=== PATIENT | female | born 2005 | race Caucasian/White ===

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

== ENCOUNTER 2023-03-20 13:34 | Emergency (ER) | payer MEDICAID, SELFPAY ==
[2023-03-20 13:35] VITALS: BP 145/107; PULSE 98; RESP 16; TEMP 36.3; O2SAT 100; BMI 19.0
--- NOTE | 2023-03-20 14:10 | EX.ED.UPPERE ---
HPI <DUNG Gaviria - Last Filed: 03/20/23 14:18> History of Present Illness Chief Complaint: Upper Extremity Injury Narrative Narrative: Patient is a 17-year-old female with no significant medical history. Presenting to the emergency department with right wrist pain. Patient dates for the last week, patient is been having more swelling, pain to the right wrist on her ulnar aspect. [facility], got x-rays 3 views of the right wrist, showed a fracture of the distal ulna, and sent her to [facility] orthopedics. Per the patient, she got called and said that she cannot go there for a cast because her insurance is not accepted there. Patient is here now for a splint. Patient denies any other injury. Patient that she probably injured it while she was army crawling under her bed 1 week ago. [facility] <DUNG Gaviria - Last Filed: 03/20/23 14:18> [facility] Medical History (Updated 03/20/23 @ 14:18 by DUNG Gaviria) Acute conjunctivitis, left eye Right distal ulnar fracture Home Medications NK 03/20/23 [History Last Taken Unknown] Allergy/AdvReac Type Severity Reaction Status Date / Time No Known Allergies Allergy Verified 03/20/23 13:37 Social History adopted: No household members: significant other and other details: mother number of children: 0 current occupational status: employed current occupation: [employer] current occupational exposures/hazards: No pets and animals: Yes pets and animals: cat(s), dog(s) and other details: Tom history of recent travel: No sexually active: Yes Smoking Status: Never smoker Tobacco: How many years used: 3 alcohol intake: never substance use type: does not use caffeine: Yes what type of physical activity do you participate in: none seatbelt use: always do you feel safe at home: Yes additional 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: 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 ROS <DUNG Gaviria - Last Filed: 03/20/23 14:18> ROS ED ROS Narrative Constitutional: Negative for fever, chills, weight loss, weakness Eyes: Negative for vision loss, vision change, double vision ENT: Negative for any sore throat, ear pain, congestion Cardiovascular: Negative for any chest pain, tightness, palpitations Respiratory: Negative for any cough, sputum production, hemoptysis, dyspnea, dyspnea on exertion, orthopnea Gastrointestinal: Negative for any abdominal pain, nausea, vomiting, diarrhea, constipation, blood in stool, blood in vomit : Negative for any urinary frequency, dysuria, retention, blood in urine Muscle skeletal: Negative for any myalgias, arthralgias, neck pain, back pain. Positive for right wrist pain Neurological: Negative for any headache, syncope, paresthesias, dizziness Skin: Negative for any rashes, lumps, itching, abrasions, lacerations Psychiatric: Negative for any depression, anxiety, stress, suicidal ideation, homicidal ideation Hematologic: Negative for any easy bruising, excessive bruising, easy bleeding Allergies: Negative for any eczema, hives, rash EXAM <DUNG Gaviria - Last Filed: 03/20/23 14:18> Physical Exam Narrative Exam Narrative: Vital signs reviewed. HEET: Head normocephalic atraumatic, TMs clear bilaterally. Posterior pharynx is clear, moist mucous membranes. Nares clear bilaterally. Neck: Supple with no lymphadenopathy or tenderness. No signs of meningismus. Cardiac: Regular rate and rhythm no murmurs gallops or rubs, equal peripheral pulses bilaterally. Respiratory: Lungs clear to auscultation bilaterally. No chest tenderness. Abdomen: Soft, nontender, nondistended. No abdominal bruit or pulsatile masses. No hepatosplenomegaly Extremities: Patient does have edema to the distal ulna, patient is have significant pain with any movement. +2 radial pulse. Neuro: Cranial nerves II through XII intact, no focal neurological deficits. Skin: Clean dry and intact with no rash, purpura, petechiae, vesicles or pustules. Backs/flank: No CVA tenderness, no midline spinal tenderness, no deformity. Psych: Normal mood and affect. No SI, HI or acute psychosis. Const Vital Signs: 03/20/23 13:35 Temperature 97.4 F L Temperature Source Temporal Pulse Rate 98 Respiratory Rate 16 Blood Pressure 145/107 H Blood Pressure Mean 119 Pulse Ox 100 Oxygen Delivery Method Room Air MDM <DUNG Gaviria - Last Filed: 03/20/23 14:18> [facility] Treatment and Re-Evaluation Narrative: Patient appears to be in no obvious distress, vital signs are stable. Presenting to the emergency department with ongoing right wrist pain after an injury that occurred 1 week ago. Patient does have a known fracture, I was able to look up the x-rays, as shows the patient has a nondisplaced transverse fracture to the distal metaphysis of the ulna. Patient will be placed in a short arm ulnar gutter. I did offer the patient a prescription for pain medicine such as [place] or Percocet, she refused. Patient states she will continue to take ibuprofen and Tylenol. I will give the patient multiple orthopedics to follow-up with. She is aware this is a temporary splint. She instructed return for any worsening symptoms. All questions answered, patient stable for discharge. <Dr. Dov Alexis MD - Last Filed: 03/20/23 16:06> [facility] Narrative Medical decision making narrative: I have personally performed a face to face assessment of the patient and have reviewed the NILE Note. I performed a substantive portion of the visit including all aspects of the following. My campbell findings include: History is minor injury, patient does not know which one it was that resulted in this fracture, but it probably occurred a week ago. Had outpatient x-rays and diagnosed with a fracture at the distal right ulna. [id number]. No neurologic symptoms or loss of function but difficulty moving her wrist with supination and pronation due to pain. Exam is no deformities. Neurovascular intact distally right upper extremity, radian, median, ulnar nerves intact including PIN and AIN branches. Tender to distal ulna, limited pronation and supination due to pain. Medical Decison Making reviewed outpatient x-rays that were obtained outside this facility. 3 views of the right wrist do appear to show a nondisplaced distal ulna shaft/metaphysis fracture. Placed in ulnar gutter splint by CVIR TECH which I supervised, neurovascular intact distally after placement and will follow-up with orthopedics, we gave her several referrals since apparently the one would not see her due to insurance issues. Other additions or changes: [None] Discharge Plan Triage Chief Complaint: Upper Extremity Injury ED Midlevel Provider: Stevenson Mathews ED Provider: Dov Alexis Dx/Rx/DC Orders Clinical Impression: Distal end of ulna fracture, closed Instructions: Fx Forearm, ED Fracture, Wrist, General Prescriptions: No Action NK Primary Care Provider: Willam Padgett Referrals: Willam Padgett MD [Primary Care Provider] - Kelby Caraballo DO [Med Staff - Active Staff] - Nathen Aburto DO [Med Staff - Active Staff] - 3-5 Days Activity Restrictions/Additional Instructions: Do not get this wet. You may elevate it, ensure that this is iced however Dry. You need to follow-up with orthopedics. Disposition Disposition: Home, Self Care Discharge Date/Time: 03/20/23 14:30
--- OUTSIDE RECORDS SUMMARY | 2023-03-20 16:40 | XMS RPT_ITS | CCD ---
Author Name Unknown Address [address] [facility] [address] [place] [id number] Organization [facility] Care Team Providers Care Tag Press Operator Name Role Phone KENNETH VEGA Attending Unavailable WILLAM ALONSO Primary Care Unavailable Willam Alonso MD Primary Care Provider [phone] Willam Alonso MD Primary Care Provider [phone] MERY EASON Attending Unavailable WILLAM ALONSO Primary Care Unavailable Medications Current Medications Medication Drug Class(es) Dates Sig (Normalized) Sig (Original) propranolol hydrochloride 10 mg oral tablet (2 sources) beta-Adrenergic Chelsi Start: 01-11-2021 End: 11-29-2021 take 1 tablet by mouth twice daily propranolol (INDERAL) 10 mg tablet TAKE 1 TABLET BY MOUTH TWICE A DAY 60 tablet 0 01/11/2021 11/29/2021 Discontinued Completed/Discontinued Medications Medication Drug Class(es) Dates Sig (Normalized) Sig (Original) ciprofloxacin 3 mg/ml ophthalmic solution (3 sources) Quinolone Antimicrobial Start: 11-28-2021 take 2 drop(s) into the eye(s) twice daily ciprofloxacin HCl (CILOXAN) 0.3 % ophthalmic solution Indications: Acute bacterial conjunctivitis of left eye Instill 2 drops twice daily into left eye x 7 days 10 mL 0 11/28/2021 Active Problems Problem Classification Problem Date Documented Da te Episodic/Chronic Inflammation; infection of eye (except that caused by tuberculosis or sexually transmitteddisease) (1 source) Acute infectious conjunctivitis; Translations: [Unspecified acute conjunctivitis, left eye] Episodic Viral infection (1 source) Acute viral disease; Translations: [Viral infection, unspecified] Episodic Results Test Name Value Interpretation Reference Range Facil ity Vital Signs Date Time Vital Sign Value Performing Clinician Faci lity 11-28-2021 09:24-0400 Body temperature 98.6 [degF] Mery Eason PA-C Work Phone: [facility] 11-28-2021 09:24-0400 Body weight 63.96 kg Mery Eason PA-C Work Phone: [facility] 11-28-2021 09:24-0400 Diastolic blood pressure 70 mm[Hg] Mery Eason PA-C Work Phone: [facility] 11-28-2021 09:24-0400 Heart rate 96 /min Mery Eason PA-C Work Phone: [facility] 11-28-2021 09:24-0400 Respiratory rate 20 /min Mery Eason PA-C Work Phone: [facility] 11-28-2021 09:24-0400 Systolic blood pressure 100 mm[Hg] Mery Eason PA-C Work Phone: [facility] Encounters Encounter Date Encounter Type Care Provider Facility Start: 10-30-2022 Telephone encounter Ivy López MD Work Phone: OB/Gynecology Start: 11-29-[address] out PA-C Work Phone: [facility] [place] Procedures Date Procedure Procedure Detail Performing Clinician Start: 06-22-2020 Adult depression screening assessment Mery Eason PA-C Work Phone: Plan of Treatment Date Care Activity Detail Author Start: 04-29-2026 Urine microalbumin profile [facility] Start: 10-11-2022 Influenza vaccination Influenza Vaccine (#1) [facility] Start: 02-10-2022 Depression Assessment Depression Assessment [facility] Start: 12-01-2021 Chlamydia Screening (18-24) Chlamydia Screening (18-24) [facility] Start: 12-01-2021 GC (Gonorrhea) Screening (18-24) GC (Gonorrhea) Screening (18-24) [facility] Start: 12-01-2021 Hepatitis C Screening Hepatitis C Screening [facility] Start: 12-01-2021 HIV Screening HIV Screening [facility] Start: 10-11-2021 Influenza vaccination INFLUENZA (#1) [facility] Start: 06-22-2021 Adult depression screening assessment DEPRESSION SCREENING [facility] Start: 02-12-2021 COVID-19 VACCINE (3 - Booster for Pfizer series) COVID-19 VACCINE (3 - Booster for Pfizer series) [facility] Start: 02-12-2021 Covid-19 Vaccine (3 - Pfizer series) Covid-19 Vaccine (3 - Pfizer series) [facility] Start: 07-20-2020 Meningococcal B Vaccine: Consider Based On Risk (2 of 2 - Risk Bexsero 2-dose series) Meningococcal B Vaccine: Consider Based On Risk (2 of 2 - Risk Bexsero 2-dose series) [facility] Start: 07-20-2020 MENINGOCOCCAL B: Consider based on risk (2 of 2 - Risk Bexsero 2-dose series) MENINGOCOCCAL B: Consider based on risk (2 of 2 - Risk Bexsero 2-dose series) [facility] Start: 12-01-2018 CHLAMYDIA SCREENING (<18) CHLAMYDIA SCREENING (<18) [facility] Start: 12-01-2018 GC (GONORRHEA) SCREENING (<18) GC (GONORRHEA) SCREENING (<18) [facility] Start: 12-01-2017 PEDS TO ADULT TRANSITION ANNUAL ASSESSMENT PEDS TO ADULT TRANSITION ANNUAL ASSESSMENT [facility] Start: 2015 PEDS TO ADULT TRANSITION INITIAL DISCUSSION PEDS TO ADULT TRANSITION INITIAL DISCUSSION [facility] COVID, FLU A/B + RSV , ROUTINE COVID, FLU A/B + RSV, ROUTINE Microbiology Routine Acute viral syndrome 11/28/2021 10:23 AM [facility] Work Phone: ROUTINE FLU A/B + RSV ROUTINE FL U A/B + RSV Lab Routine Acute viral syndrome 11/28/2021 10:23 AM T [facility] Work Phone: SARS-CoV-2 (COVID-19 ) RNA [Presence] in Respiratory specimen by JAMES with probe detection 2019 CORONAVIRUS Microbiology Routine Acute viral syndrome 11/28/2021 10:23 AM [facility] Work Phone: [facility] Immunizations Immunization Date Immunization Notes Care Provider Zoraida austin 12-18-2020 COVID-19 original vaccine, age 12+ yr, monovalent ([employer].NTActivaero - PURPLE TOP) Mery Eason PA-C Work Phone: [facility] 11-13-2020 COVID-19 original vaccine, age 12+ yr, monovalent (PFIZER-BIONTECH - PURPLE TOP) Mery Eason PA-C Work Phone: [facility] 11-13-2020 influenza, injectabl e, quadrivalent, contains preservative Mery Eason PA-C Work Phone: [facility] 11-13-2020 influenza virus vacc ine, unspecified formulation Ivy López MD Work Phone: [facility] 06-22-2020 meningococcal B vacc ine, recombinant, OMV, adjuvanted Mery Eason PA-C Work Phone: [facility] 05-25-2020 meningococcal polysaccharide (groups A, C, Y and W-135) diphtheria toxoid conjugate vaccine (MCV4P) Emry Eason PA-C Work Phone: [facility] 08-26-2017 Human Papillomavirus 9-valent vaccine Mery Eason PA-C Work Phone: [facility] 04-29-2016 Human Papillomavirus 9-valent vaccine Mery Eason PA-C Work Phone: [facility] 04-29-2016 influenza, injectabl e, quadrivalent, contains preservative Mery Eason PA-C Work Phone: [facility] 04-29-2016 meningococcal polysaccharide (groups A, C, Y and W-135) diphtheria toxoid conjugate vaccine (MCV4P) Mery Eason PA-C Work Phone: [facility] 04-29-2016 tetanus toxoid, redu fitz diphtheria toxoid, and acellular pertussis vaccine, adsorbed Mery Eason PA-C Work Phone: [facility] 11-19-2013 influenza, injectabl e, quadrivalent, preservative free Mery Eason PA-C Work Phone: [facility] Work Phone: 02-26-2013 influenza virus vacc ine, unspecified formulation Mery Eason PA-C Work Phone: [facility] 11-21-2011 influenza virus vacc ine, live, attenuated, for intranasal use Emry Eason PA-C Work Phone: [facility] Work Phone: 12-01-2008 influenza virus vacc ine, live, attenuated, for intranasal use Mery Eason PA-C Work Phone: [facility] 10-26-2008 diphtheria, tetanus toxoids and acellular pertussis vaccine Mery Eason PA-C Work Phone: [facility] Work Phone: 10-26-2008 measles, mumps and rubella virus vaccine Mery Eason PA-C Work Phone: [facility] Work Phone: 10-26-2008 poliovirus vaccine, inactivated Mery Eason PA-C Work Phone: [facility] Work Phone: 10-26-2008 varicella virus vaccine Ashish ten Eason PA-C Work Phone: [facility] Work Phone: 01-04-2006 influenza virus vacc ine, unspecified formulation Mery Eason PA-C Work Phone: [facility] Work Phone: 03-06-2005 diphtheria, tetanus toxoids and acellular pertussis vaccine Mrey Eason PA-C Work Phone: [facility] Work Phone: 03-06-2005 haemophilus influenz ae type b vaccine, HbOC conjugate Mery Eason PA-C Work Phone: [facility] Work Phone: 01-14-2005 influenza virus vacc ine, unspecified formulation Mery Eason PA-C Work Phone: [facility] Work Phone: 12-12-2004 influenza virus vacc ine, unspecified formulation Mery Sternut PA-C Work Phone: [facility] Work Phone: 12-12-2004 measles, mumps and rubella virus vaccine Mery Sternut PA-C Work Phone: [facility] Work Phone: 12-12-2004 pneumococcal conjuga te vaccine, 7 valent Mery Eason PA-C Work Phone: [facility] Work Phone: 12-12-2004 varicella virus vaccine Ashish Sternut PA-C Work Phone: [facility] Work Phone: 06-06-2004 DTaP-hepatitis B and poliovirus vaccine Mery Sternut PA-C Work Phone: [facility] Work Phone: 06-06-2004 haemophilus influenz ae type b vaccine, HbOC conjugate Mery Eason PA-C Work Phone: [facility] Work Phone: 06-06-2004 pneumococcal conjuga te vaccine, 7 valent Mery Eason PA-C Work Phone: [facility] Work Phone: 04-04-2004 DTaP-hepatitis B and poliovirus vaccine Mery Sternut PA-C Work Phone: [facility] Work Phone: 04-04-2004 haemophilus influenz ae type b vaccine, HbOC conjugate Mery Eason PA-C Work Phone: [facility] Work Phone: 04-04-2004 pneumococcal conjuga te vaccine, 7 valent Mery Eason PA-C Work Phone: [facility] Work Phone: 02-08-2004 DTaP-hepatitis B and poliovirus vaccine Mery Eason PA-C Work Phone: [facility] Work Phone: 02-08-2004 haemophilus influenz ae type b vaccine, HbOC conjugate Mery FROSTC Work Phone: [facility] Work Phone: 02-08-2004 pneumococcal conjuga te vaccine, 7 valent Mery Eason PA-C Work Phone: [facility] Work Phone: Payers Date Payer Category Payer Private Health Insurance [id number] 2021 Private Health Insurance [id number] 2018 Unknown [id number] 1976 Unknown [id number] Social History Date Type Detail Facility Start: 11-28-2021 Tobacco smoking stat [facility] Never smoked tobacco [facility] Work Phone: Start: 11-28-2021 Tobacco use and exposure Smokeless tobacco non-user [facility] Work Phone: Start: 11-28-2021 Alcohol intake Current non-dr stamp pad finisher of alcohol (finding) [facility] Start: 2003 Sex Assigned At Not on file C [facility] Start: 11-28-2021 End: 03-08-2022 History of Social function [facility] Start: 11-28-2021 End: 03-08-2022 Tobacco use panel [facility] National Score (1-100), lower number is lower risk 57 [facility] Note 10-30-2022 Telephone Encounter - Ivy Basurto MD - 10/30/2022 5:04 PM EDTTelephone Encounter - Genevieve Alba RN - 10/30/2022 2:32 PM EDT Note Date & Type Note Facility 10-30-2022 Miscellaneous Notes Formattin g of this note might be different from the original. Agree with advice. No indication for testing. 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 She had questions regarding progesterone levels in . She states her mother had 2 miscarriages and was given progesterone with her pregnancies because her level was low . I discussed with her that because her mother had miscarriages does not meant that she will. I discussed the s/s of miscarriage and when/how to report. I reassured her and told her I would send the doctor a note that she called today and asked about this. Patient was comfortable with advice. documented in this encounter [facility] Note 11-29-2021 Telephone Encounter - Lisbeth Dickey RN - 11/29/2021 9:31 AM EDTTelephone Encounter - Rosie Diaz LPN - 11/29/2021 8:48 AM EDTTelephone Encounter - Mery Eason PA-C - 11/29/2021 8:21 AM EDT Note Date & Type Note Facility 11-29-2021 Miscellaneous Notes Formattin g of this note might be different from the original. Patient calls in and results and provider message given. Patient verbalizes understanding. Lisbeth Dickey RN Attempted to call. Unable to leave a message as the mailbox is full. Please let family know patient tested negative for covid and flu Mery Eason PA-C documented in this encounter [facility] Progress note 11-28-2021 Note Date & Type Note Facility 11-28-2021 Note HNO ID: [id number] Author: Mery Eason PA-C Service: ? Author Type: Physician Tooth Cutter Clutch Type: Progress Notes Filed: 11/28/2021 2:59 PM Note Text: PEDIATRIC SICK VISIT SERVICE DATE: 11/28/2021 TEACHING PROVIDER (Physician/PA/CRICKET) NOTE OF PERSONAL INVOLVEMENT IN CARE: I have personally seen and examined the patient and performed the medical decision-making components. I have reviewed the Physician Tooth Cutter Clutch (AUSTIN) Student's documentation and verified the findings in the note as written. Signature: Mery Eason PA-C Date: 11/28/2021 Time: 2:56 PM This note was generated by a PA STUDENT working under the supervision of an Attending Physician Tooth Cutter Clutch. As applicable, the findings, conclusions, and assessment of risk have been confirmed by a qualified provider. The note is NOT considered authenticated until addended and co-signed by the Attending Physician Tooth Cutter Clutch at the beginning of this note. SUBJECTIVE: Rula Boyle is a 15 year old female for evaluation of eye erythema of the left eye. Symptom onset was 12 days ago. Presented to [facility] on and started tobramycin drops. She has completed the course of drops and has seen mild improvement. However, this morning she noticed new onset of purulent discharge (previously had been clear). Endorses cloudy vision, throbbing headaches, dry cough, congestion, rhinorrhea. Denies eye pruritus, painful eye movements, and fevers. Does not have a history of conjunctivitis. Denies wearing contacts. Nausea and vomiting began on /Friday. The episodes have been several times per day since then. She has had a steep decrease in appetite, endorses bilious vomiting. Denies hematemesis. She denies recent travel, recent antibiotic use, or camping. 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 Has not worked since . Patient would like COVID and Flu swab. History was obtained from: patient Modifying factors attempted: Tea Bags Ice Tobrex drops Normal eye drops Sick contacts: No known sick contacts HISTORY: There is no problem list on file for this patient. PAST MEDICAL HISTORY Diagnosis Date Menstrual cycle problem 11/2016 NEGATIVE MEDICAL HISTORY Normal Color Vision PAST SURGICAL HISTORY Procedure Laterality Date NONE Allergies: ALLERGIES No Known Allergies Medications: ciprofloxacin HCl (CILOXAN) 0.3 % ophthalmic solution Instill 2 drops twice daily into left eye x 7 days propranolol (INDERAL) 10 mg tablet TAKE 1 TABLET BY MOUTH TWICE A DAY (Patient not taking: Reported on 11/28/2021) sertraline (ZOLOFT) 100 mg tablet TAKE 1 TABLET BY MOUTH EVERY DAY (Patient not taking: Reported on 11/28/2021) REVIEW OF SYSTEMS: GENERAL: Negative for fevers, Negative for weight loss and malaise HEENT: Positive for: headache , facial pain, eye discharge, eye redness, congestion, and clear rhinorrhea RESPIRATORY: Negative for wheezing or respiratory distress, +Dry cough GI: Positive for nausea, vomiting (last episode last night), and abdominal discomfort. Decreased appetite SKIN: Negative for lesions, rash, and itching. OBJECTIVE: BP 100/70 Pulse 96 Temp 37 ?C (98.6 ?F) (Temporal) Resp 20 Wt 64 kg (141 lb) LMP 12/07/2020 General: alert and active in no apparent distress, pleasant Eyes: left conjunctiva injected, purulent discharge present, lid mildly edematous; right, white conjunctiva; painless EOMI bilaterally. Ears: TMs translucent: bilaterally, good light reflex, no bulging, no discharge. Nose: no erythema or exudate OP: no lesions, no erythema, moist mucous membranes Neck: supple, no adenopathy Lungs: clear to auscultation bilaterally, good air exchange, no retractions, no wheezes, rales, or rhonchi CVS: Normal rate, regular rhythm, no murmur Abdomen: soft, nondistended, mild RLQ tenderness, no hepatosplenomegaly or masses Skin: No rashes, lesions or skin changes ASSESSMENT/PLAN: Encounter Diagnosis ICD-10-CM 1. Acute viral syndrome B34.9 COVID, FLU A/B + RSV, ROUTINE 2. Acute bacterial conjunctivitis of left eye H10.32 ciprofloxacin HCl (CILOXAN) 0.3 % ophthalmic solution This patient encounter involved the screening or treatment of novel coronavirus infection (COVID-19). - Discussed course of illness and contagiousness. - COVID/flu/RSV ordered - Increase fluids. - Supportive measures for URI including saline, steamy shower/bathroom and sleeping with cool mist humidifier. - Symptomatic treatment with Acetaminophen or Ibuprofen. - Ordered ciloxan ophthalmic drops twice daily for 7 days. - All questions answered - Follow up for persistent or worsening symptoms, not drinking, decreased urination, or other concerns. AUSTIN Mckeon-S2 November 28, 2021 2:40 PM SIGNATURE: Mery Eason PA-C PATIENT NAME: Rula Boyle DATE: November 28, 2021 TIME: (more content not included)... [facility] History of Present illness Narrative 11-28-2021 Mery Eason PA-C - 11/28/2021 9:27 AM EDT Note Date & Type Note Facility 11-28-2021 History of Presen t illness Narrative PEDIATRIC SICK VISIT SERVICE DATE: 11/28/2021 TEACHING PROVIDER (Physician/PA/CHIEF INSPECTOR) NOTE OF PERSONAL INVOLVEMENT IN CARE: I have personally seen and examined the patient and performed the medical decision-making components. I have reviewed the Physician Tooth Cutter Clutch (PA) Student's documentation and verified the findings in the note as written. Signature: Mery Eason PA-C Date: 11/28/2021 Time: 2:56 PM This note was generated by a PA STUDENT working under the supervision of an Attending Physician Tooth Cutter Clutch. As applicable, the findings, conclusions, and assessment of risk have been confirmed by a qualified provider. The note is NOT considered authenticated until addended and co-signed by the Attending Physician Tooth Cutter Clutch at the beginning of this note. SUBJECTIVE: Rula Boyle is a 15 year old female for evaluation of eye erythema of the left eye. Symptom onset was 12 days ago. Presented to [facility] on and started tobramycin drops. She has completed the course of drops and has seen mild improvement. However, this morning she noticed new onset of purulent discharge (previously had been clear). Endorses cloudy vision, throbbing headaches, dry cough, congestion, rhinorrhea. Denies eye pruritus, painful eye movements, and fevers. Does not have a history of conjunctivitis. Denies wearing contacts. Nausea and vomiting began on /Friday. The episodes have been several times per day since then. She has had a steep decrease in appetite, endorses bilious vomiting. Denies hematemesis. She denies recent travel, recent antibiotic use, or camping. 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 Has not worked since . Patient would like COVID and Flu swab. History was obtained from: patient Modifying factors attempted: Tea Bags Ice Tobrex drops Normal eye drops Sick contacts: No known sick contacts HISTORY: There is no problem list on file for this patient. PAST MEDICAL HISTORY Diagnosis Date Menstrual cycle problem 11/2016 NEGATIVE MEDICAL HISTORY Normal Color Vision PAST SURGICAL HISTORY Procedure Laterality Date NONE Allergies: ALLERGIES No Known Allergies Medications: ciprofloxacin HCl (CILOXAN) 0.3 % ophthalmic solution Instill 2 drops twice daily into left eye x 7 days propranolol (INDERAL) 10 mg tablet TAKE 1 TABLET BY MOUTH TWICE A DAY (Patient not taking: Reported on 11/28/2021) sertraline (ZOLOFT) 100 mg tablet TAKE 1 TABLET BY MOUTH EVERY DAY (Patient not taking: Reported on 11/28/2021) REVIEW OF SYSTEMS: GENERAL: Negative for fevers, Negative for weight loss and malaise HEENT: Positive for: headache , facial pain, eye discharge, eye redness, congestion, and clear rhinorrhea RESPIRATORY: Negative for wheezing or respiratory distress, +Dry cough GI: Positive for nausea, vomiting (last episode last night), and abdominal discomfort. Decreased appetite SKIN: Negative for lesions, rash, and itching. OBJECTIVE: BP 100/70 Pulse 96 Temp 37 C (98.6 F) (Temporal) Resp 20 Wt 64 kg (141 lb) LMP 12/07/2020 General: alert and active in no apparent distress, pleasant Eyes: left conjunctiva injected, purulent discharge present, lid mildly edematous; right, white conjunctiva; painless EOMI bilaterally. Ears: TMs translucent: bilaterally, good light reflex, no bulging, no discharge. Nose: no erythema or exudate OP: no lesions, no erythema, moist mucous membranes Neck: supple, no adenopathy Lungs: clear to auscultation bilaterally, good air exchange, no retractions, no wheezes, rales, or rhonchi CVS: Normal rate, regular rhythm, no murmur Abdomen: soft, nondistended, mild RLQ tenderness, no hepatosplenomegaly or masses Skin: No rashes, lesions or skin changes ASSESSMENT/PLAN: Encounter Diagnosis ICD-10-CM 1. Acute viral syndrome B34.9 COVID, FLU A/B + RSV, ROUTINE 2. Acute bacterial conjunctivitis of left eye H10.32 ciprofloxacin HCl (CILOXAN) 0.3 % ophthalmic solution This patient encounter involved the screening or treatment of novel coronavirus infection (COVID-19). - Discussed course of illness and contagiousness. - COVID/flu/RSV ordered - Increase fluids. - Supportive measures for URI including saline, steamy shower/bathroom and sleeping with cool mist humidifier. - Symptomatic treatment with Acetaminophen or Ibuprofen. - Ordered ciloxan ophthalmic drops twice daily for 7 days. - All questions answered - Follow up for persistent or worsening symptoms, not drinking, decreased urination, or other concerns. FIDE Mckeon November 28, 2021 2:40 PM SIGNATURE: Mery Eason PA-C PATIENT NAME: Rula Boyle DATE: November 28, 2021 TIME: 9:27 AM documented in this encounter [facility] Evaluation note Note Date & Type Note Facility documented in this encounter [facility] Summary Purpose Family History No Family History Records FoundNo Family History Records Found Advance Directives No Advanced Directives Records FoundNo Advanced Directives Records Found Additional Source Comments INFORMATION SOURCE (unrecogn ized section and content) DATE CREATED AUTHOR AUTHOR'S ORGANIZ ATION 11/01/2022 [facility] Source Comments (unrecognize d section and content) In the event this informatio n is protected by the Federal Confidentiality of Alcohol and Drug Abuse Patient Records regulations: The Federal rules restrict any use of the information to criminally investigate or prosecute any alcohol or drug abuse patient.[facility] the event this information is protected by the Federal Confidentiality of Alcohol and Drug Abuse Patient Records regulations: The Federal rules restrict any use of the information to criminally investigate or prosecute any alcohol or drug abuse patient.[facility] the event this information is protected by the Federal Confidentiality of Alcohol and Drug Abuse Patient Records regulations: The Federal rules restrict any use of the information to criminally investigate or prosecute any alcohol or drug abuse patient.[facility] Reason for Visit (unrecogniz ed section and content) Specialty Diagnoses / Procedures Referred By Josefina salguero Referred To Contact Pediatrics / PRIMARY [facility] Diagnoses Encounter for general adult medical examination without abnormal findings left eye red/watery Procedures OFFICE/OUTPATIENT ESTABLISHED MOD MDM 30-39 MIN 4C EST Self Mery Eason PA-C [address] [place] [address] Referral ID Status Reason Start Date Expiration Date Visits Re quested Visits Authorized [id number] Closed 11/28/2021 02/09/2022 1 1 Reason Comments Results Care Teams (unrecognized sec tion and content) Tag Press Operator Relationship Specialty Start Date End Date Willam Alonso MD [address] [place] [address] PCP - General 03 Tag Press Operator Relationship Specialty Start Date End Date Willam Alonso MD [address] [place] [address] PCP - General 03 FOR RECORDS PERTAINING TO PATIENTS WHO ARE OR HAVE BEEN ENROLLED IN A CHEMICAL DEPENDENCY/SUBSTANCEABUSE PROGRAM, SOME INFORMATION MAY BE OMITTED. This clinical summary was aggregated from multiple sources. Caution should be exercised in using it in the provision of clinical care. This summary normalizes information from multiple sources, and as a consequence, information in this document may materially change the coding, format and clinical context of patient data. In addition, data may be omitted in some cases. CLINICAL DECISIONS SHOULD BE BASED ON THE PRIMARY CLINICAL RECORDS. [facility]. provides no warranty or guarantee of the accuracy or completeness of information in this document.
== END 2023-03-20 14:30 | disposition home or self-care (01) ==
PROVIDERS: Emergency Provider Emergency Medicine; PCP Pediatrics; Visit Provider Emergency Medicine
DX: S52.601D Unspecified fracture of lower end of right ulna, subsequent encounter for closed fracture with routine healing (principal); X58.XXXD Exposure to other specified factors, subsequent encounter
CPT/HCPCS: 29105; 73110; 99282

== ENCOUNTER → 2023-03-20 | Outpatient (CLI) | payer MEDICAID, SELFPAY ==
--- NOTE | 2023-03-20 11:39 | RAD_ITS ---
STUDY: X-RAY - RIGHT WRIST REASON FOR EXAM: Female, 17 years old. Wrist pain TECHNIQUE: 3 view(s) of the wrist were obtained. COMPARISON: None. FINDINGS: There is a nondisplaced transverse fracture of the distal ulnar diaphysis. Normal radiocarpal articulation. Normal distal radioulnar articulation. Normal carpal bones. Normal carpal articulations. Normal carpometacarpal articulation of the thumb. Normal second through fifth carpometacarpal articulations. Normal visualized metacarpal bones. Soft tissue swelling. RAD/Wrist min 3 Views IMPRESSION: Nondisplaced transverse fracture through the distal metaphysis of the ulna. Electronically Signed: Britton St MD at 11:58 EST ,
== END | disposition home or self-care (01) ==
PROVIDERS: PCP Pediatrics; Referring Provider Physician Assistant Surgical; Visit Provider Physician Assistant Surgical
DX: S66.911A Strain of unspecified muscle, fascia and tendon at wrist and hand level, right hand, initial encounter (principal)
CPT/HCPCS: 73110